=== PATIENT | female | born 1935 | race Caucasian/White ===

== ENCOUNTER 2019-06-05 09:34 | Emergency (ER) | payer OTHER, MEDICAID ==
[~2019-06-05] VITALS: Ht 162.6 cm; Wt 59.0 kg
[2019-06-05 09:34] VITALS: BP_SYST 112
--- NOTE | 2019-06-05 09:34 | NUR ---
BIB [address] from [facility]. Placed in room 05. Placed on vehicle monitor technician, blood pressure machine and pulse oximeter. To gown for exam. Side rails up. Report given to MICHELLE Velez.
[2019-06-05] MEDS ORDERED: ACET-284 PO (09:56)
[2019-06-05] MEDS ORDERED: LISI-209 PO (09:56)
[2019-06-05] MEDS ORDERED: CHOL500051 PO (09:56)
[2019-06-05] MEDS ORDERED: TRAZ-250 PO (09:56)
[2019-06-05] MEDS ORDERED: CEL20 PO (09:56)
[2019-06-05] MEDS ORDERED: DONE10TA44 PO (09:56)
[2019-06-05] MEDS ORDERED: ESOM40CA53 PO (09:56)
[2019-06-05] MEDS ORDERED: CALC-823 PO (09:56)
[2019-06-05] MEDS ORDERED: ALPR0.25 PO (09:56)
[2019-06-05] MEDS ORDERED: FERR325T30 PO (09:56)
--- NOTE | 2019-06-05 09:56 | NUR ---
Medication reconciliation completed with information provided by [facility]. PT IS NON-VERBAL
--- NOTE | 2019-06-05 10:00 | NUR ---
Shania guillen in [facility] - 06/05/19 at 1012 by SDEDTD CARISSA Haney at bedside examining patient.
--- NOTE | 2019-06-05 10:00 | NUR ---
Patient BIB BLS from [facility] C/O Syncope. Patient A&Ox2, skin pink and warm, afebrile, pain to right arm 2/10, denies N/V/D. BLS report staff at [facility] stated patient was unresponsive x1 min during morning cares for am dental appoinment. Son at bedside.
--- NOTE | 2019-06-05 10:12 | NUR ---
ER Dr. Haney at bedside examining patient.
[2019-06-05 10:43] LABS: BASOPHILS % (AUTO) 0.7 % (0.0-2.0); EOSINOPHILS # (AUTO) 0.1 K/uL (0.0-0.4); EOSINOPHILS % (AUTO) 1.8 % (0.0-4.0); HEMATOCRIT 35.8 % (36-48); HEMOGLOBIN 11.9 g/dL (12.0-16.0); LYMPHOCYTES # (AUTO) 1.5 K/uL (1.0-5.5); MEAN CORPUSCULAR HEMOGLOBIN 31 pg (27-31); MEAN CORPUSCULAR HGB CONC 33 % (32-36); MEAN CORPUSCULAR VOLUME 93 fL (79.0-98.0); MONOCYTES # (AUTO) 0.3 K/uL (0.0-1.0); NEUTROPHILS # (AUTO) 4.6 K/uL (1.8-7.7); NEUTROPHILS % (AUTO) 70.5 % (40.0-70.0); PLATELET COUNT (AUTO) 152 K/uL (130-430); RED BLOOD CELL COUNT(AUTO) 3.86 MIL/uL (4.2-6.2); RED CELL DISTRIBUTION WIDTH 15.3 % (9.0-15.0); WHITE BLOOD COUNT (AUTO) 6.5 K/uL (4.8-10.8)
[2019-06-05 10:55] LABS: ANION GAP 8 (5-15); CALCIUM 8.8 mg/dL (8.4-11.0); CHLORIDE 105 mmol/L (98-107); CREATININE 1.53 mg/dL (0.55-1.30); GLUCOSE 160 mg/dL (70-99); POTASSIUM 4.1 mmol/L (3.5-5.1); SODIUM SERUM 140 mmol/L (136-145); UREA NITROGEN, BLOOD 25 mg/dL (8-21)
[2019-06-05 11:01] LABS: ALANINE AMINOTRANSFERASE 17 U/L (12-78); ALBUMIN 3.6 g/dL (3.4-4.8); ASPARTATE AMINOTRANSFERASE 13 U/L (10-37); TOTAL BILIRUBIN 0.6 mg/dL (0.0-1.0)
[2019-06-05 12:15] VITALS: BP_SYST 112
== END 2019-06-05 12:15 | disposition home or self-care (01) ==
LOC: SED 09:34
DX: R55 Syncope and collapse (principal); I10 Essential (primary) hypertension; Z79.899 Other long term (current) drug therapy; Z91.011 Allergy to milk products
CPT/HCPCS: 36415; 71045; 80053; 82550-TC; 84484; 85025; 93005; 99284